=== PATIENT | female | born 1990 | race Caucasian/White ===

== ENCOUNTER 2017-03-20 18:33 | Inpatient (IN) | payer OTHER ==
[2017-03-20 18:50] VITALS: BMI 26.1
[2017-03-20 19:38] LABS: HEMATOCRIT 40.6 % (34.0-47.0); MEAN CORPUSCULAR HEMOGLOBIN 30.4 pg (27.0-31.0); RED CELL DISTRIBUTION WIDTH 12.6 % (11.5-14.5); WHITE BLOOD COUNT 10.9 K/uL (4.8-10.8)
[2017-03-20] MEDS ORDERED: Oxytocin 30 UNITS in Sodium Chloride 0.9% 500 ML IV SCH (19:45)
[2017-03-20] MEDS ORDERED: Penicillin G Potassium 5 MU in Sodium Chloride 0.9% 50 ML IVPB ONE (19:46)
--- NOTE | 2017-03-20 20:44 | OBADHP ---
Datetime: 03/20/2017 20:15 IP Chief Complaint Other: Oligo/ IUGR Admit Comment, IP Provider: 27 yo G1 at 36+6 wks for induction of labor IUGR/ oligohydramnios as rec ommended by Dr. Chen. FHT reactive. GBS unknown. Will start Penicillin for GBS prophylaxis. Wi ll start IV pitocin for induction. H_P dictated, "[id number]" (ES) Extremities - PN: Normal Back - PN: Normal Lungs - PN: Normal Heart - PN: Normal Neurologic - PN: Normal HEENT - PN: Normal FHR - Baseline A Provider: 130s Contraction Comments Provider: Quiet Vital Signs Provider: Reviewed NICHD Variability Prov Fetus A: Moderate 6-25bpm NICHD Accel Fetus A IP Provider: 15X15 NICHD Decel Fetus A IP Provider: None Dilatation, Provider: 1 Effacement, Provider: 70 Genitourinary Exam: Normal IP Adm Impression: , intrauterine IP Admit Plan: Initiate labor induction protocol
[2017-03-20] MEDS: Lactated Ringer's 1,000 ML IV SCH (20:46)
--- NOTE | 2017-03-21 01:38 | HP ---
HISTORY OF PRESENT ILLNESS: This is a 27-year-old G1 at 36 weeks and 6 days with an EDC of 04/11/2017 by 7-week ultrasound, who was sent from [facility] for delivery due to oligohydramnios and IUGR. The estimated weight is 2452 grams or 5 pounds and 6 ounces. The biophysical profile is 8/8. KYLE is 2.5. So it is recommended that the patient be delivered per Dr. Chen. The patient denies contractions, vaginal bleeding, leaking of fluid, and does report movements. Patient received her care carefully with Dr. David Dixon. PAST MEDICAL HISTORY: Healthy. PAST SURGICAL HISTORY: None. MEDICATIONS: vitamins. ALLERGIES: NO KNOWN DRUG ALLERGIES. SOCIAL HISTORY: Patient denies tobacco, alcohol. No illicit drug use. FAMILY HISTORY: Paternal grandmother with pancreatic cancer, maternal grandmother with heart disease, and 3 grandparents with diabetes. GYNECOLOGIC HISTORY: Patient reports monthly periods. Denies any STDs or any abnormal Paps. LABORATORY DATA: Her rubella was immune. Admittedly for carrier screen was negative. Blood type A positive, antibody screen negative. Hemoglobin electrophoresis within normal limits. Her urine culture was no growth. Gonorrhea and chlamydia were negative. RPR was nonreactive. HIV negative. Hepatitis B surface antigen negative. Pap smear was negative. Maternal serum AFP was negative. On 01/04/2017, her 1-hour Glucola was 116. HIV was nonreactive. RPR was nonreactive. PHYSICAL EXAMINATION: GENERAL: Afebrile. VITAL SIGNS: Stable. ABDOMEN: Soft, nontender, gravid. EXTREMITIES: Nontender. VAGINAL: 1-cm dilated, 70% effaced, and -2 station at 7:20 p.m. HEART: Regular rate and rhythm. LUNGS: Clear to auscultation bilaterally. MONITORING: External monitoring in the 130s with moderate variability and positive accelerations. [place] appears to be quiet with artifact. ASSESSMENT AND PLAN: This is a 27-year-old 1 at 36 weeks and 6 days, who was sent from [facility] for delivery due to oligohydramnios and intrauterine growth restriction. We will start the induction with intravenous Pitocin, and we will start penicillin for group B streptococcus prophylaxis, given that the baby is premature. Bebo Canales MD [facility] # [id number]
[2017-03-21] MEDS: Lactated Ringer's 1,000 ML IV SCH ×2 (07:30→13:48)
[2017-03-21] MEDS ORDERED: Oxytocin 30 UNITS in Sodium Chloride 0.9% 500 ML IV ONE (10:00)
[2017-03-22] MEDS ORDERED: Oxytocin 30 UNITS in Sodium Chloride 0.9% 500 ML IV SCH (10:00)
--- NOTE | 2017-03-22 12:51 | OBPN ---
Datetime: 03/22/2017 10:00 IP Progress Impression: Reassuring heart rate IP Informed Consent Obtain: Vaginal Delivery; Risks, Benefits and Alternatives Discussed IP Progress Plan: Continue present management; Induction; Cervical Ripening Pool Provider: Negative Membranes, Provider: Intact FHR - Baseline A Provider: 140 Presentation-Admit: Vertex IP Progress Note Comment: She was admitted for Oligo SatMar 20 at night, Started on Pitcoin for au gmentaton/stopped last nigth and gievn Cervidil for IOL. She feels occ CTX A: IUP at 37w Oligo PLAN: discussion with pt about continued IOL...pt agrees to start Cytotec 50mcg q 4h...her questio ns answered NICHD Accel Fetus A IP Provider: 15X15 FHR Category Provider Fetus A: Category I NICHD Variability Prov Fetus A: Moderate 6-25bpm Dilatation, Provider: 1 Effacement, Provider: long Station, Provider: high NICHD Decel Fetus A IP Provider: None Datetime: 03/20/2017 20:15 Contraction Comments Provider: Quiet Vital Signs Provider: Reviewed
[2017-03-23] MEDS ORDERED: Penicillin G Potassium 5 MU in Sodium Chloride 0.9% 50 ML IVPB ONE (02:16)
--- NOTE | 2017-03-23 02:53 | OBPN ---
Datetime: 03/23/2017 02:51 IP Progress Note Comment: Notiifed that she was 4cm dilated...last dose of Cytotec was 23:00pm. She feels CTX pain Discussion about pain management, labor and delivery...will give Nubain
[2017-03-23] MEDS ORDERED: Nalbuphine 20 mg/ml Inj (1 ml) IVP PRN (03:02)
[2017-03-23] MEDS: Lactated Ringer's 1,000 ML IV SCH (03:19)
[2017-03-23] MEDS ORDERED: Fentanyl/Bupivacaine HCl 250 ML EPI ONE (03:52)
[2017-03-23] MEDS ORDERED: Bupivacaine HCl 0.25% PF (10 ml) Inj ONE (03:52)
[2017-03-23] MEDS ORDERED: Oxytocin 30 UNITS in Sodium Chloride 0.9% 500 ML IV ONE (07:26)
--- NOTE | 2017-03-23 07:33 | OBPN ---
Datetime: 03/23/2017 07:00 IP Progress Impression: Normal progression of labor; Reassuring heart rate IP Informed Consent Obtain: Vaginal Delivery; Risks, Benefits and Alternatives Discussed IP Procedures: Artificial ROM IP Progress Plan: Continue present management; Augmentation Membranes, Provider: Ruptured Contraction Comments Provider: occ FHR - Baseline A Provider: 130 Presentation-Admit: Vertex IP Progress Note Comment: [place] she was noted to be 7cm at 6am. She was able to sleep after epidur al. She feel better because she has progressed. A: slow prgress in active phase of labor/irregular CTX PLAN: AROM clear fluid for augmentation. Ab for unkjnow GBS status NICHD Accel Fetus A IP Provider: 15X15 FHR Category Provider Fetus A: Category I NICHD Variability Prov Fetus A: Moderate 6-25bpm Dilatation, Provider: 7-8 Effacement, Provider: 100 Station, Provider: 0 NICHD Decel Fetus A IP Provider: None
--- NOTE | 2017-03-23 07:51 | OBPN ---
Datetime: 03/23/2017 07:00 IP Progress Note Comment: Ealrier she was noted to be 7cm at 6am. She was able to sleep after epidur al. She feel better because she has progressed. A: slow prgress in active phase of labor/irregular CTX PLAN: AROM clear fluid for augmentation. Pitocin augmentatoin to be started Ab for unkjnow GBS status
[2017-03-23] MEDS ORDERED: Lidocaine 1% Inj (20ml) ONE (08:57)
[2017-03-23] MEDS ORDERED: Benzocaine/Menthol SPRAY TOP PRN ×2 (10:26→15:23)
[2017-03-23] MEDS ORDERED: Oxycodone/Acetaminophen 5/325 mg Tab PO PRN ×2 (10:26→15:23)
[2017-03-23] MEDS ORDERED: OXYTOCIN/0.9 % NS 20 UNIT/1,000 ML BAG IV SCH (15:23)
[2017-03-24 08:05] LABS: HEMATOCRIT 39.2 % (34.0-47.0); MEAN CELL VOLUME 93.2 fl (81.0-99.0); MEAN CORPUSCULAR HEMOGLOBIN 30.2 pg (27.0-31.0); MEAN CORPUSCULAR HGB CONC 32.4 g/dL (33.0-37.0); RED CELL DISTRIBUTION WIDTH 12.6 % (11.5-14.5); WHITE BLOOD COUNT 13.2 K/uL (4.8-10.8)
[2017-03-24] MEDS ORDERED: Multivitamin With Minerals Tab PO SCH (09:00)
[2017-03-24] MEDS: Multivitamin With Minerals Tab PO SCH (09:41)
[2017-03-25] MEDS: Multivitamin With Minerals Tab PO SCH (09:22)
[2017-03-25] MEDS ORDERED: Influenza Vaccine 18yr & older 0.5 ML/45 MCG SYR IM ONE (10:00)
--- NOTE | 2017-03-25 11:28 | OBPPN ---
Datetime: 03/25/2017 11:24 PP Pain Prov: Within normal limits PP Nausea Prov: Denies PP Flatus Prov: Yes PP Breasts Prov: Normal PP Heart Prov: Normal PP Lungs Prov: Normal PP Abdomen/Uterus Prov: Normal PP Lochia Prov: Normal PP Vulva/Perineum Prov: Normal PP CVA Tenderness Prov: Normal PP Extremities Prov: Normal PP Comments Phys Exam Prov: Fundus firm under umbilicus PP Impression Prov: Normal progression PP Plan Prov: Continue present management PP Progress Note Prov: Patient denies CP, no SOB, no N/V, tolerating PO diet, ambulating/voiding wel l, mild lochia, abdominal pain tolerable with meds A/P PPD #2 1. discharge pt home 2. discharge instructions reviewed IP PP Procedures: None Vital Signs Provider PP: Reviewed; Within Normal Limits
--- NOTE | 2017-03-25 11:28 | OBDCSUM ---
Datetime: 03/25/2017 11:22 Discharged to, Provider: Home Follow up at, Provider: [facility] Disch Instr Activity: Normal activity; May be up to bathroom; May be up for meals; May Shower Disch Instr Diet: Regular Discharge Instructions, Provider: Routine instructions given Discharge Diagnosis, Provider: Term Delivered Discharge Time: 03/25/2017 12:30 Follow up in weeks, Provider: in 5 to 6 weeks Disch Referrals: None Contraception discussed, Prov: Yes Disch Activity Restrictions: No lifting; No sexual activity; Nothing in vagina - [place], tampon s, douche
[2017-03-25 23:25] VITALS: BP 102/64; PULSE 76; RESP 20; TEMP 98.5; O2SAT 97
== END 2017-03-25 19:22 | disposition home or self-care (01) | DRG 775 ==
LOC: H.EROB2 18:33 → H.L&D 18:50 → H.OB/GYN 03-23 13:00
PROVIDERS: ADMIT Obstetrics & Gynecology; ATTEND Obstetrics & Gynecology
PROC: 4A1HXCZ Monitoring of Products of Conception, Cardiac Rate, External Approach (ICD-10-PCS; principal; 2017-03-20)
PROC: 10E0XZZ Delivery of Products of Conception, External Approach (ICD-10-PCS; 2017-03-23)
PROC: 0KQM0ZZ Repair Perineum Muscle, Open Approach (ICD-10-PCS; 2017-03-23)
DX: O41.03X0 Oligohydramnios, third trimester, not applicable or unspecified (principal); O36.5930 Maternal care for other known or suspected poor fetal growth, third trimester, not applicable or unspecified; Z37.0 Single live birth; Z3A.37 37 weeks gestation of pregnancy; Z80.0 Family history of malignant neoplasm of digestive organs; Z82.49 Family history of ischemic heart disease and other diseases of the circulatory system; Z83.3 Family history of diabetes mellitus; O70.1 Second degree perineal laceration during delivery